=== PATIENT | male | born 1950 | race Caucasian/White ===

== ENCOUNTER → 2017-07-10 | Outpatient (CLI) | payer OTHER | LOC: ULTRA 13:00 | DX: N63 Unspecified lump in breast (principal) ==

== ENCOUNTER → 2017-08-06 | Outpatient (CLI) | payer OTHER | LOC: RAD 10:59 | DX: N62 Hypertrophy of breast (principal) ==

== ENCOUNTER → 2021-09-21 | Outpatient (CLI) | payer OTHER ==
[~2021-09-21] MED LIST: ELIQUIS5 MG PO; LISINOPRIL20 MG PO; OMEPRAZOLE 20 M20 M1 PO; ROSUVASTATIN CA20 MG PO
== END | disposition home or self-care (01) ==
LOC: LAB 05:41
PROVIDERS: ATTEND Student in an Organized Health Care Education/Training Program
DX: Z01.818 Encounter for other preprocedural examination (principal); Z20.822 Contact with and (suspected) exposure to COVID-19

== ENCOUNTER → 2021-09-23 | Outpatient (CLI) | payer OTHER ==
[~2021-09-23] VITALS: Ht 195.6 cm; Wt 114.8 kg
--- NOTE | 2021-09-26 13:21 | P ---
[facility] [place] [address] PROCEDURE REPORT Name: ROZ STRICKLAND Room #: REG [facility].#: [id number] Admission: 09/23/21 Attend Phys: Alban De La Paz Discharge: Date of : 46 Report #: [id number] THIS REPORT FOR: cc: HETAL FLORENTINO Physician not on staff Alban Linda MD ~ cc: Hetal Florentino DATE OF SERVICE: 09/23/2021 PROCEDURE PERFORMED: Upper endoscopy. HISTORY OF PRESENT ILLNESS: The patient is a 70-year-old male with a history of gastroesophageal reflux disease, currently taking omeprazole 20 mg about every 3 days on a p.r.n. basis. He does report intermittent heartburn symptoms. Denies any dysphagia. No nausea or vomiting. Plan is for upper endoscopy. DESCRIPTION OF PROCEDURE: The risks and benefits of the procedure were explained to the patient, those risks including but not limited to bleeding, perforation and the risk of sedation. He understood these risks and gave informed consent. Sedation was given using propofol per anesthesia. Next, using a standard Olympus upper endoscope, the scope was placed in the patient's mouth and advanced under direct vision through the esophagus, stomach and into the second portion of the duodenum. The larynx was normal in appearance. The upper and mid esophagus were normal. In the distal esophagus at the GE junction, grade B erosive esophagitis was noted. No evidence of Ortega's. Overall, the gastric mucosa was normal. The pylorus was normal and patent. The duodenal bulb, first and second portion were all normal. The scope was then withdrawn and the procedure terminated. The patient tolerated the procedure well. IMPRESSION: 1. Grade B erosive esophagitis. 2. Otherwise, normal upper endoscopy. RECOMMENDATIONS: 1. Recommend taking Prilosec on a daily basis long-term. 2. Plan is for colonoscopy next today. Thank you for allowing me to participate in his care. <ELECTRONICALLY SIGNED> By: Alban Linda MD 09/26/21 1321 [id number] 1136 Alban Linda MD /nt
--- NOTE | 2021-09-26 13:21 | P ---
[facility] [place] [address] [address] PROCEDURE REPORT Name: ROZ STRICKLAND Room #: [id number] Admission: 09/23/21 Attend Phys: Alban De La Paz Discharge: Date of : 46 Report #: [id number] THIS REPORT FOR: cc: HETAL FLORENTINO Physician not on staff Alban Linda MD ~ cc: Hetal Florentino DATE OF SERVICE: 09/23/2021 PROCEDURE PERFORMED: Colonoscopy with biopsies. HISTORY OF PRESENT ILLNESS: The patient is a 70-year-old male. He presents today for screening colonoscopy. Last colonoscopy was 10 years ago. He denies any symptoms at this time. No family history of colon cancer. He has had a previous history of prostate cancer with radiation. DESCRIPTION OF PROCEDURE: The risks and benefits of the procedure were explained to the patient, those risks including but not limited to bleeding, perforation and the risk of sedation. He understood these risks and gave informed consent. Sedation was given using propofol per Anesthesia. Next, a digital rectal exam was initially performed, which was normal. Next, using a standard Olympus colonoscope, the scope was placed in the patient's anus and advanced under direct vision to the cecum. The overall prep was excellent. The cecum and ileocecal valve were normal in appearance. The ascending and transverse colon were normal. In the descending colon, a 4 mm sessile polyp was noted. This was removed with cold forceps, otherwise normal. In the sigmoid colon, a 3 mm sessile polyp also removed with cold forceps. In the rectum, a 3-mm sessile polyp noted and removed with cold forceps. There was no evidence of radiation changes. In the rectum, small nonbleeding internal hemorrhoids were noted. The scope was then withdrawn and the procedure terminated. The patient tolerated the procedure well. IMPRESSION: 1. Three small colonic polyps. 2. Small internal hemorrhoids. 3. Otherwise, normal colonoscopy. RECOMMENDATIONS: 1. Await biopsy results. 2. If polyps are hyperplastic, repeat in 10 years; if adenomatous polyps, repeat in [address] [address] PROCEDURE REPORT Name: ROZ STRICKLAND [id number] Admission: 09/23/21 Attend Phys: Alban De La Paz Discharge: Date of : 46 Report #: [id number] Thank you for allowing me to participate in his care. <ELECTRONICALLY SIGNED> By: Alban Linda MD 09/26/21 1321 0808 1209 Alban Linda MD /nt
--- NOTE | 2021-09-28 14:07 | PATH ---
[facility] [address] [place] [address] PATHOLOGY RPT PROCEDURE Name: ROZ STRICKLAND Room #: REG CLNiles Villanueva.#: [id number] Admission: 09/23/21 Date of : 46 Discharge: Report #: [id number] Path Case #: [id number] [facility] Accession Number: [id number] . 01 Material submitted: . PART A: colon - DESCENDING COLON POLYP BIOPSY. Modifiers: descending PART B: sigmoid colon - SIGMOID COLON POLYP BIOPSY PART C: rectum - RECTAL POLYP BIOPSY . 01 Clinical history: . ESOPHAGOGASTRODUODENOSCOPY, COLONOSCOPY REFLUX, SCREENING COLON ESOPHAGITIS, COLON POLYPS . 02 Diagnosis: A. Colonic mucosa (descending colon polyp): - Hyperplastic polyp. . B. Colonic mucosa (sigmoid colon biopsy): - Hyperplastic polyp. . C. Colonic mucosa (rectal polyp biopsy): - Serrated adenoma. (JUNE:guillaume; 09/27/2021) QTP 09/27/2021 1409 Local . 02 Comment: We find no evidence of high grade dysplasia or of malignancy. (SWK:pit; 09/27/2021) . 02 Electronically signed: . Kg Paulson MD, Pathologist NPI- [id number] . 01 Gross description: . A. The specimen is received in formalin, labeled "Roz Strickland, descending colon polyp biopsy". Received is a segment of pale aguilera tissue measuring 0.6 cm in maximum dimensions. The specimen is submitted entirely in cassette A1. . B. The specimen is received in formalin, labeled "Roz Strickland, sigmoid colon polyp biopsy". Received is a segment of pale aguilera tissue measuring 0.4 cm in maximum dimensions. The specimen is submitted entirely in cassette B1. . C. The specimen is received in formalin, labeled "Roz Strickland, rectal polyp biopsy". Received are three segments of pale [place] [address] PATHOLOGY RPT PROCEDURE Name: ROZ STRICKLAND Room #: REG CLI [facility].#: [id number] Admission: 09/23/21 Date of : 46 Discharge: Report #: [id number] Path Case #: [id number] size from 0.2-0.4 cm in maximum dimensions. The specimen is submitted entirely in cassette C1. (CAA; 09/26/2021) QAC/QAC 09/26/2021 1230 Local . 02 Pathologist provided ICD-10: K63.5, D12.8 . 02 CPT . 572705, [id number], 631710 Specimen Comment: A courtesy copy of this report has been sent to [phone], [phone] Specimen Comment: [phone] Specimen Comment: Report sent to / DR FLORENTINO Specimen Comment: A duplicate report has been generated due to demographic updates. Performed at: 01 [facility] [address] [id number] MD Obdulio Montgomery MD Phone: [phone] Performed at: 02 [facility] [address] [id number] MD Kg Paulson MD Phone: [phone]
== END | disposition home or self-care (01) ==
LOC: GI
PROVIDERS: ATTEND Specialist
DX: Z12.11 Encounter for screening for malignant neoplasm of colon (principal); D12.8 Benign neoplasm of rectum; K64.8 Other hemorrhoids; K21.9 Gastro-esophageal reflux disease without esophagitis; K22.10 Ulcer of esophagus without bleeding; R12 Heartburn; I10 Essential (primary) hypertension; E78.00 Pure hypercholesterolemia, unspecified; E11.9 Type 2 diabetes mellitus without complications; I48.91 Unspecified atrial fibrillation; Z98.890 Other specified postprocedural states; Z79.899 Other long term (current) drug therapy; Z85.46 Personal history of malignant neoplasm of prostate; Z86.73 Personal history of transient ischemic attack (TIA), and cerebral infarction without residual deficits; Z90.49 Acquired absence of other specified parts of digestive tract
CPT/HCPCS: 62110; 62900